=== PATIENT | male | born 1950 | race Hispanic/Latino ===

== ENCOUNTER 2017-08-12 11:30 | Emergency (ER) | payer BC ==
[2017-08-12 11:37] VITALS: BP 174/91; PULSE 75; RESP 18; TEMP 98.1; O2SAT 96
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
== END 2017-08-12 12:08 | disposition home or self-care (01) ==
LOC: C.ER 11:30
DX: S01.511A Laceration without foreign body of lip, initial encounter (principal); W50.0XXA Accidental hit or strike by another person, initial encounter

== ENCOUNTER 2017-08-29 23:15 | Inpatient (IN) | payer BC, MEDICARE ==
[2017-08-29 23:40] LABS: BASO # 0.1 K/uL (0.0-0.2); BASO % 0.8 % (0.0-2.0); EOS # 0.2 K/uL (0.0-0.7); EOS % 1.9 % (0.0-4.0); HEMOGLOBIN 16.3 g/dL (12.0-18.0); LYMPH # 3.6 K/uL (1.0-4.3); LYMPH % 39.4 % (20.0-40.0); MEAN CELL VOLUME 98.4 fL (80.0-94.0); MEAN CORPUSCULAR HEMOGLOBIN 34.7 pg (27.0-31.0); MEAN CORPUSCULAR HGB CONC 35.3 g/dL (33.0-37.0); MONO # 0.7 K/uL (0.0-0.8); NEUT # 4.5 K/uL (1.8-7.0); NEUT % 49.9 % (50.0-75.0); NRBC % 0.1 % (0.0-2.0); RBC 4.7 Mil/uL (4.40-5.90); RED CELL DISTRIBUTION WIDTH 12.8 % (11.5-14.5); WHITE BLOOD COUNT 9.1 K/uL (4.8-10.8)
--- NOTE | 2017-08-29 23:52 | C.PDOC ---
History Of Present Illness 67 year old male, whose PMHx includes heroin abuse, presents to the ED requesting heroin detox. Patient states his last use was tonight. He denies suicidal/homicidal ideation and has no other complaints at this time. Chief Complaint (Nursing): Substance Abuse History Per: Patient History/Exam Limitations: no limitations Onset/Duration Of Symptoms: Hrs Current Symptoms Are (Timing): Still Present Suicide/Self Injury Attempted (Context): None Modifying Factor(s): Other (heroin ) Associated Symptoms: denies: Suicidal Thoughts, Suicidal Plan Involuntary Hold By: None Recent travel outside of the [place]: No Additional History Per: Patient Past Medical History Reviewed: Historical Data, Nursing Documentation, Vital Signs Vital Signs: Last Vital Signs Temp 98.1 F 08/29/17 23:20 Pulse 79 08/29/17 23:20 Resp 20 08/29/17 23:20 BP 131/77 08/29/17 23:20 Pulse Ox 98 08/30/17 01:08 - Medical History PMH: Anxiety Surgical History: No Surg Hx Family History: States: Unknown Family Hx - Social History Hx Alcohol Use: No Hx Substance Use: No - Immunization History Hx Tetanus Toxoid Vaccination: Yes Hx Influenza Vaccination: No Hx Pneumococcal Vaccination: No Review Of Systems Psych: Positive for: Other (heroin detox ) Physical Exam - Physical Exam Appears: Non-toxic, No Acute Distress Skin: Normal Color, Warm, Dry Head: Atraumatic, Normacephalic Eye(s): bilateral: Normal Inspection Oral Mucosa: Moist Neck: Supple Chest: Symmetrical, No Deformity, No Tenderness Cardiovascular: Rhythm Regular, No Murmur Respiratory: Normal Breath Sounds, No Accessory Muscle Use Extremity: Normal ROM, Capillary Refill (less than 2 seconds ) Neurological/Psych: Oriented x3, Normal Speech, Normal Cognition ED Course And Treatment - Laboratory Results Result Diagrams: 08/29/17 23:37 08/29/17 23:37 O2 Sat by Pulse Oximetry: 98 (on RA ) Pulse Ox Interpretation: Normal Progress Note: Bloodwork and urinalysis ordered and reviewed. Disposition Discussed With : David Renee Doctor Will See Patient In The: Hospital Counseled Patient/Family Regarding: Diagnosis - Disposition Disposition: HOSPITALIZED Disposition Time: 01:07 Condition: STABLE Forms: [facility] (Sudanese) - POA Present On Arrival: None - Clinical Impression Clinical Impression: Opiate abuse, continuous, Alcohol abuse - Scribe Statement The provider has reviewed the documentation as recorded by the Scribe (Brigette Arreola) Provider Attestation: All medical record entries made by the Scribe were at my direction and personally dictated by me. I have reviewed the chart and agree that the record accurately reflects my personal performance of the history, physical exam, medical decision making, and the department course for this patient. I have also personally directed, reviewed, and agree with the discharge instructions and disposition.
[2017-08-29 23:53] LABS: ALBUMIN 4.1 g/dL (3.5-5.0); ALT/SGPT 121 U/L (21-72); AST/SGOT 104 U/L (17-59); BLOOD UREA NITROGEN 16 mg/dL (9-20); CALCIUM 8.9 mg/dl (8.6-10.4); GFR AFRICAN-AMERICAN > 60; GFR NON-AFRICAN AMERICAN > 60
[2017-08-29 23:56] LABS: URINE BACTERIA RARE (<OCC); URINE BILIRUBIN NEGATIVE (NEGATIVE); URINE BLOOD NEGATIVE (NEGATIVE); URINE CALCIUM OXALATE CRYSTALS OCC /hpf (<OCC); URINE CLARITY Hazy (Clear); URINE COLOR Amber (YELLOW); URINE GLUCOSE (UA) NORMAL (Normal); URINE LEUKOCYTE ESTERASE NEG Leu/uL (Negative); URINE PROTEIN 1+ mg/dL (NEGATIVE)
[2017-08-30 00:04] LABS: BARBITURATES, UR NEGATIVE (NEGATIVE); PHENCYCLIDINE, UR NEGATIVE (NEGATIVE)
[2017-08-30 00:09] LABS: BENZODIAZEPINES, UR POSITIVE (NEGATIVE); OPIATES, UR POSITIVE (NEGATIVE)
--- NOTE | 2017-08-30 02:41 | PCM.BM ---
<Yolanda Bryson - Last Filed: 08/30/17 02:39> Treatment Plan Problems - Problems identified on initial assessmt Opiates dependence Date Initiated: 08/30/17 Time Initiated: 02:00 Assessment reference: NA Status: Active Treatment assets and liabiliti Patient Assests: cooperative, ADL independent, negotiates basic needs Patient Liabilities: substance abuse - Milieu Protocol Maintain good personal hygiene: daily Encourage regular showers, daily Remind patient to perform daily oral care, daily Assist patient to perform ADL's Conduct patient checks and document Observation sheet: Q15 minutes Maintain personal safety: every shift Educate patient to report safety concerns to staff, every shift Monitor environment for contraband/sharps Medication safety: Monitor for expected outcome, potential side effects: every shift, Assess barriers to learning: every shift, Assess readiness for medication education: every shift <David Renee - Last Filed: 08/30/17 14:02> - Diagnosis (1) Alcohol abuse Status: Acute Interventions: 08/30/17 14:02 * Assess 7x/week regarding severity of withdrawal * Educate regarding risks, benefits, side effects and alternatives of medications * Use Motivational Interviewing for abstinence * Use CBT for relapse prevention * Medication management for withdrawal symptoms * Encourage medication assisted treatment * (2) Opiate abuse, continuous Status: Acute Interventions: 08/30/17 14:02 * Assess 7x/week regarding severity of withdrawal * Educate regarding risks, benefits, side effects and alternatives of medications * Use Motivational Interviewing for abstinence * Use CBT for relapse prevention * Medication management for withdrawal symptoms * Encourage medication assisted treatment * <Mayda Manzano - Last Filed: 09/03/17 13:28> Family Contact Family involvement: Family/SO is involved Family contact name: Sukhwinder Family contacted how many times per week?: 1 - Goals for Treatment Patient goals for treatment: Complete detox and transition to MMT. Discharge/Continuing Care - Education Needs Education Needs: Patient Medication, Patient Diagnosis/Disease Process, Patient Coping Skills, Patient Anger Management skills, Patient Placement options, Patient Community resources, Significant Other Medication, Significant Other Diagnosis/Disease Process, Significant Other Coping Skills, Significant Other Anger Management skills, Significant Other Placement options, Significant Other Community resources - Discharge Discharge Criteria: No longer exhibiting s/s of withdrawal, Reduction of target symptoms Discharge to:: Home, With Family - Treatment Team Participation Patient/Family/SO Statement: 09/03/17 13:28 "I wanna go to methadone after this..." Discussed with Family/SO: No Was Patient/Family/SO present at Treatment Team Meeting: Yes
[2017-08-30] MEDS ORDERED: Aluminum Hydroxide/Magnesium Hydroxide Susp (30 mL) PO PRN (09:24)
[2017-08-30] MEDS: Multiple Vitamins Tab PO SCH (10:20)
--- NOTE | 2017-08-30 12:32 | PCM.PSYCH ---
Initial Psychiatric Evaluation - Initial Psychiatric Evaluation Type of Admission: Voluntary Legal Status: Capacity Chief Complaint (in patient's own words): "Heroin, I need to stop." History of Present Illness and Precipitating Events: The patient is seen, chart reviewed and his case discussed. This is a 67-year-old male, has one child who is 24 years old. The patient is "semiretired," and lives in his car at the moment. He says he is using 7 bags of intranasal heroin for the past 4 years. He had one detox and rehabilitation in [place] several years ago. He hasn't been on maintenance or gone to . He describes significant withdrawal symptoms and he was unable to stop without admission. He also uses Xanax 1-2 mg a day and alcohol 4-5 shots and some beers, almost daily. Maximum was 10 shots a day. He smokes 2 cigarettes per day. He also smokes marijuana regularly. He denies having seizures but he came close to DTs he says. Past psych history: He suffers from anxiety disorder. No medications and no admissions. No suicide attempts Past medical history: This currently and has lower back pain, bilateral knee replacement and hepatitis C Family psych history: Denies Current Medications: Active Medications Generic Name Dose Route Start Last Admin Trade Name Freq PRN Reason Stop Dose Admin Al Hydrox/Mg Hydrox/Simethicone 30 ml 08/30/17 09:24 Maalox 30 Ml PO TID PRN Indigestion / Heartburn Clonidine HCl 0.1 mg 08/30/17 09:23 Catapres PO Q4H PRN Symptoms of alcohol withdrawl Folic Acid 1 mg 08/30/17 10:00 08/30/17 10:20 Folic Acid PO 1 mg DAILY CLARISSA Administration Ibuprofen 400 mg 08/30/17 02:33 08/30/17 10:20 Motrin Tab PO 400 mg Q6 PRN Administration Pain, moderate (4-7) Loperamide HCl 2 mg 08/30/17 09:24 Imodium PO Q8 PRN Diarrhea Lorazepam 1 mg 08/30/17 09:23 Ativan PO Q4H PRN Symptoms of alcohol withdrawl Lorazepam 1 mg 08/30/17 10:00 08/30/17 10:20 Ativan PO 09/04/17 09:59 1 mg Q4H CLARISSA Administration Taper Multivitamins 1 tab 08/30/17 10:00 08/30/17 10:20 Hexavitamin PO 1 tab DAILY CLARISSA Administration Ondansetron HCl 4 mg 08/30/17 09:24 Zofran Tab PO Q8 PRN Nausea/Vomiting Pneumococcal Polyvalent Vaccine 0.5 ml 09/02/17 10:00 Pneumovax 23 Vaccine IM 09/02/17 10:01 .ONCE ONE Thiamine HCl 100 mg 08/30/17 10:00 08/30/17 10:20 Vitamin B1 Tab PO 100 mg DAILY CLARISSA Administration Trazodone HCl 50 mg 08/30/17 09:23 Desyrel PO HS PRN Insomnia Past Psychiatric History - Past Psychiatric History Previous Treatment History: None Pertinent Medical Hx (Current Medical&Sleep Prob, Allergies): Allergies Allergy/AdvReac Type Severity Reaction Status Date / Time No Known Allergies Allergy Verified 08/29/17 23:26 Gabapentin [Neurontin] 300 mg PO TID 04/08/15 Review of Systems - Neurological Neurological: UNREMARKABLE - Psychiatric Psychiatric: Abnormal Sleep Pattern, Anhedonia, Anxiety, Difficulty Concentrating. absent: Hallucinations, Homicidal Ideation, Paranoia, Suicidal Ideation Mental Status Examination - Personal Presentation Personal Presentation: Looks stated age - Affect Affect: Constricted - Motor Activity Motor Activity: Calm - Reliability in Providing Information Reliability in Providing Information: Good - Speech Speech: Organized - Mood Mood: Anxious - Formal Thought Process Formal Thought Process: No Impairment - Cognitive Functions Orientation: Person, Place, Situation, Time Sensorium: Alert Attention/Concentration: Easily distracted Estimate of Intelligence: Average Judgement: Intact, as evidence by: Insight regarding need for hospitalization Memory: Recent intact, as evidence by: Ability to recall events of the day, Remote intact, as evidenced by: Abilit to recall sig. 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 Attend groups and activities Supportive therapy and psychoeducation [place] for abstinence CBT for relapse prevention Encourage MAT Refer to rehab or IOP, and self-help groups Smoking cessation with [place] Nicotine patch if needed 34 min Projected ELOS: 4-5 days Prognosis: good w treatment - Smoking Cessation Smoking Cessation Initiated: Yes
[2017-08-31] MEDS: Multiple Vitamins Tab PO SCH (09:16)
--- NOTE | 2017-09-01 00:15 | PCM.PYCHPN ---
Psychiatric Progress Note - Psychiatric Progress Note Patient seen today, length of contact: 15 min Patient Chief Complaint: "Pain everywhere" Problems Identified/Issues Discussed: The pt is seen, chart reviewed, case discussed with staff. The pt is compliant with medications and reports no side-effects. Symptoms are improving but needs more time to stabilize. Pt attends activities. Support given, psycho-education provided. After care discussed. He thinks about moving to [place] Medication Change: Yes (detox changes daily) Medical Record Reviewed: Yes Mental Status Examination - Cognitive Function Orientation: Person, Place, Situation, Time Memory: Intact Attention: WNL Concentration: Poor Association: WNL Fund of Knowledge: WNL - Mood Mood: Anxious - Affect Affect: Constricted - Speech Speech: Appropriate - Formal Thought Process Formal Thought Process: No Impairment - Suicidal Ideation Suicidal Ideation: No - Homicidal Ideation Homicidal Ideation: No Goal/Treatment Plan - Goal/Treatment Plan Need for Continued Stay: Discharge may exacerbated symptoms, Severe functional impairment Progress Toward Problem(s) and Goals/Treatment Plan: Taper with methadone and Ativan Gabapentin for augmentation if needed As needed medications All risks, benefits and alternatives of the meds discussed, and the pt agreed and understood. Attend groups and activities Supportive therapy and psychoeducation [place] for abstinence CBT for relapse prevention Encourage MAT Refer to rehab or IOP, and self-help groups Smoking cessation with [place] Nicotine patch if needed Estimated Date of D/C: 09/04/17
[2017-09-01] MEDS: Multiple Vitamins Tab PO SCH (09:27)
[2017-09-02] MEDS ORDERED: Pneumococcal 23-Valent Vaccine IM ONE (10:00)
[2017-09-02] MEDS: Multiple Vitamins Tab PO SCH (10:27)
--- NOTE | 2017-09-02 11:54 | PCM.PYCHPN ---
Psychiatric Progress Note - Psychiatric Progress Note Patient seen today, length of contact: 16 min Patient Chief Complaint: "I can't sleep until late hours" Problems Identified/Issues Discussed: The pt is seen, chart reviewed, case discussed with staff. Support and psychoeducation given, CBT and ID used briefly No new symptoms reported, improving slowly and needs more time No SEs from medications, risks discussed. After care discussed Medication Change: Yes (detox changes daily) Medical Record Reviewed: Yes Mental Status Examination - Cognitive Function Orientation: Person, Place, Situation, Time Memory: Intact Attention: WNL Concentration: Poor Association: WNL Fund of Knowledge: WNL - Mood Mood: Anxious - Affect Affect: Constricted - Speech Speech: Appropriate - Formal Thought Process Formal Thought Process: No Impairment - Suicidal Ideation Suicidal Ideation: No - Homicidal Ideation Homicidal Ideation: No Goal/Treatment Plan - Goal/Treatment Plan Need for Continued Stay: Discharge may exacerbated symptoms, Severe functional impairment Progress Toward Problem(s) and Goals/Treatment Plan: Taper with methadone and Ativan Gabapentin for augmentation if needed As needed medications All risks, benefits and alternatives of the meds discussed, and the pt agreed and understood. Attend groups and activities Supportive therapy and psychoeducation [place] for abstinence CBT for relapse prevention Encourage MAT Refer to rehab or IOP, and self-help groups Smoking cessation with ID Nicotine patch if needed Estimated Date of D/C: 09/04/17
[2017-09-03] MEDS: Multiple Vitamins Tab PO SCH (09:23)
[2017-09-03] MEDS ORDERED: guaiFENesin 100 mg/5 ml Syrup UD PO PRN (13:41)
--- NOTE | 2017-09-03 14:01 | PCM.PYCHPN ---
Psychiatric Progress Note - Psychiatric Progress Note Patient seen today, length of contact: 15 min Patient Chief Complaint: "I am so sick" Problems Identified/Issues Discussed: The pt is seen, chart reviewed, case discussed with staff. The pt is compliant with medications and reports no side-effects. Symptoms are improving but needs more time to stabilize. He c/o pain, dizziness , insomnia Pt attends groups and activities. Support given, psycho-education provided. After care discussed. Medication Change: Yes (detox changes daily) Medical Record Reviewed: Yes Mental Status Examination - Cognitive Function Orientation: Person, Place, Situation, Time Memory: Intact Attention: WNL Concentration: Poor Association: WNL Fund of Knowledge: WNL - Mood Mood: Anxious - Affect Affect: Constricted - Speech Speech: Appropriate - Formal Thought Process Formal Thought Process: No Impairment - Suicidal Ideation Suicidal Ideation: No - Homicidal Ideation Homicidal Ideation: No Goal/Treatment Plan - Goal/Treatment Plan Need for Continued Stay: Discharge may exacerbated symptoms, Severe functional impairment Progress Toward Problem(s) and Goals/Treatment Plan: Taper with methadone and Ativan Gabapentin for augmentation if needed As needed medications All risks, benefits and alternatives of the meds discussed, and the pt agreed and understood. Attend groups and activities Supportive therapy and psychoeducation [place] for abstinence CBT for relapse prevention Encourage MAT Refer to rehab or IOP, and self-help groups Smoking cessation with [place] Nicotine patch if needed Estimated Date of D/C: 09/05/17
--- NOTE | 2017-09-03 15:15 | RAD ---
Date of service: 09/03/2017 HISTORY: productive cough COMPARISON: No prior. TECHNIQUE: Chest PA and lateral FINDINGS: LUNGS: No active pulmonary disease. PLEURA: No significant pleural effusion identified. No pneumothorax apparent. CARDIOVASCULAR: Normal. OSSEOUS STRUCTURES: Scoliosis. Degenerative changes. VISUALIZED UPPER ABDOMEN: Normal. OTHER FINDINGS: None. IMPRESSION: No active disease.
[2017-09-04] MEDS: Multiple Vitamins Tab PO SCH (10:17)
--- NOTE | 2017-09-04 13:53 | PCM.PYCHPN ---
Psychiatric Progress Note - Psychiatric Progress Note Patient seen today, length of contact: 15 min Patient Chief Complaint: "I am so sick" Problems Identified/Issues Discussed: The pt is seen, chart reviewed, case discussed with staff. The pt is compliant with medications and reports no side-effects. Symptoms are improving but needs more time to stabilize. He c/o pain, dizziness , insomnia Pt attends groups and activities. Support given, psycho-education provided. After care discussed. Medication Change: Yes (detox changes daily) Medical Record Reviewed: Yes Mental Status Examination - Cognitive Function Orientation: Person, Place, Situation, Time Memory: Intact Attention: WNL Concentration: Poor Association: WNL Fund of Knowledge: WNL - Mood Mood: Anxious - Affect Affect: Constricted - Speech Speech: Appropriate - Formal Thought Process Formal Thought Process: No Impairment - Suicidal Ideation Suicidal Ideation: No - Homicidal Ideation Homicidal Ideation: No Goal/Treatment Plan - Goal/Treatment Plan Need for Continued Stay: Discharge may exacerbated symptoms, Severe functional impairment Progress Toward Problem(s) and Goals/Treatment Plan: Taper with methadone and Ativan Gabapentin for augmentation if needed As needed medications All risks, benefits and alternatives of the meds discussed, and the pt agreed and understood. Attend groups and activities Supportive therapy and psychoeducation [place] for abstinence CBT for relapse prevention Encourage MAT Refer to rehab or IOP, and self-help groups Smoking cessation with [place] Nicotine patch if needed Estimated Date of D/C: 09/05/17
[2017-09-04 14:09] VITALS: TEMP 98.5; O2SAT 98
--- NOTE | 2017-09-04 14:33 | PCM.PYCHDC ---
Mental Status Examination - Mental Status Examination Orientation: Person Discharge Summary - Discharge Note Consultations:: List each consultation separately and include: 1. Reason for request. 2. Findings. 3. Follow-up Summary of Hospital Course include:: 1. Description of specific treatment plan utilized for patients during their course of treatmen. 2. Summarize the time- course for resolution of acute symptoms and/or regressed behaviors. 3. Describe issues identified and worked on during hospitalization. 4. Describe medication utilized. 5. Describe medical problems identified and treated. 6. Reassessment of suicide risk Summary of Hospital Course: The patient is seen, chart reviewed and his case discussed. This is a 67-year-old male, has one child who is 24 years old. The patient is "semiretired," and lives in his car at the moment. He says he is using 7 bags of intranasal heroin for the past 4 years. He had one detox and rehabilitation in [place] several years ago. He hasn't been on maintenance or gone to . He describes significant withdrawal symptoms and he was unable to stop without admission. He also uses Xanax 1-2 mg a day and alcohol 4-5 shots and some beers, almost daily. Maximum was 10 shots a day. He smokes 2 cigarettes per day. He also smokes marijuana regularly. He denies having seizures but he came close to DTs he says. Past psych history: He suffers from anxiety disorder. No medications and no admissions. No suicide attempts Past medical history: This currently and has lower back pain, bilateral knee replacement and hepatitis C Family psych history: Denies He was considered for several rehabs, ie [facility] bc he wanted to go there, and [facility] but at the last minute he changed his mind, plus he did not have an ID. - Diagnosis (1) Alcohol abuse Current Visit: Yes Status: Acute (2) Opiate abuse, continuous Current Visit: Yes Status: Acute - Final Diagnosis (DSM 5) Condition upon Discharge: STABLE Disposition: HOME/ ROUTINE
[2017-09-04 14:57] VITALS: BP 167/83; PULSE 61; RESP 18
== END 2017-09-04 15:26 | disposition home or self-care (01) | DRG 895 ==
LOC: C.ER 23:15 → C.7D 08-30 01:08
PROVIDERS: ADMIT Psychiatry & Neurology Psychiatry; ATTEND Psychiatry & Neurology Psychiatry
PROC: HZ2ZZZZ Detoxification Services for Substance Abuse Treatment (ICD-10-PCS; principal; 2017-08-30)
PROC: HZ59ZZZ Individual Psychotherapy for Substance Abuse Treatment, Supportive (ICD-10-PCS; 2017-08-30)
PROC: HZ46ZZZ Group Counseling for Substance Abuse Treatment, Psychoeducation (ICD-10-PCS; 2017-08-30)
PROC: HZ90ZZZ Pharmacotherapy for Substance Abuse Treatment, Nicotine Replacement (ICD-10-PCS; 2017-08-30)
DX: F11.23 Opioid dependence with withdrawal (principal); F10.231 Alcohol dependence with withdrawal delirium; F12.90 Cannabis use, unspecified, uncomplicated; F13.10 Sedative, hypnotic or anxiolytic abuse, uncomplicated; F17.210 Nicotine dependence, cigarettes, uncomplicated; F41.9 Anxiety disorder, unspecified; G47.00 Insomnia, unspecified; B18.2 Chronic viral hepatitis C; Z96.653 Presence of artificial knee joint, bilateral; Z59.0 Homelessness

== ENCOUNTER 2017-09-17 13:52 | Emergency (ER) | payer BC, MEDICARE ==
[2017-09-17 14:13] VITALS: BP 120/85; PULSE 86; RESP 18; TEMP 98.2; O2SAT 96
[2017-09-17] MEDS ORDERED: Lidocaine 5% Patch TD STA (14:37)
--- NOTE | 2017-09-17 14:42 | C.PDOC ---
History Of Present Illness 67 year old with past medical history of chronic back pain and heroin abuse presents to the ER for back pain. Patient states he has chronic lower back pain that has been going on for many years for which he has had 2 prior lumbar disectomies prior. Patient denies numbness and tingling of the pain. He states leaning forward makes the pain better. He states he uses a cane for ambulation. He states he has been homeless for the past few months for which he has been sleeping on the street which has not been helping his back pain. Medical History: Lip[place] (this is a correction from triage); Chronic back pain Social History: Heroin 4-5 bags per day (Nasal use); smokes 1/2 pack per day; 1- 2 beers per day (12oz) (Ami Hillman) Chief Complaint (Nursing): Groin Pain Past Medical History - Medical History PMH: Anxiety, Depression Denies: Diabetes, Hepatitis, HIV, HTN, Seizures, Sexually Transmitted Disease Family History: States: Unknown Family Hx - Social History Hx Alcohol Use: No Hx Substance Use: No - Immunization History Hx Tetanus Toxoid Vaccination: Yes Hx Influenza Vaccination: No Hx Pneumococcal Vaccination: No Vital Signs: Last Vital Signs Temp 98.2 F 09/17/17 14:08 Pulse 86 09/17/17 14:08 Resp 18 09/17/17 14:08 BP 120/85 09/17/17 14:08 Pulse Ox 96 09/17/17 15:26 - [facility] Procedures DETOXIFICATION SERVICES FOR SUBSTANCE ABUSE TREATMENT (08/30/17) GROUP AGRICULTURAL EXTENSION OFFICER FOR SUBSTANCE ABUSE TREATMENT, PSYCHOEDUCATION (08/30/17) INDIV PSYCHOTHERAPY FOR SUBSTANCE ABUSE TREATMENT, SUPPORT (08/30/17) PHARMACOTHERAPY FOR SUBSTANCE ABUSE, NICOTINE REPLACE (08/30/17) Review Of Systems Musculoskeletal: Positive for: Back Pain Neurological: Negative for: Weakness, Numbness, Incoordination, Dizziness Physical Exam - Physical Exam Appears: Well, Non-toxic, No Acute Distress Head: Atraumatic, Normacephalic Eye(s): bilateral: Normal Inspection, PERRL, EOMI Cardiovascular: Rhythm Regular Respiratory: Normal Breath Sounds Gastrointestinal/Abdominal: Normal Exam, Soft, No Tenderness Back: Vertebral Tenderness (L2 vertebral tendereness ), No Decreased ROM ( normal ROM), No Straight Leg Raising (negative straight leg test bilaterally ) Neurological/Psych: Oriented x3, Normal Motor ED Course And Treatment O2 Sat by Pulse Oximetry: 96 Medical Decision Making Medical Decision Making: Discussed with patient the importance of following up with a primary care doctor and a pain management physician. Also counselled the patient the importance of heroin and smoking cessation. ( Ami Hillman) Disposition Discussed With Dr.: Sriram Mae DO - Disposition Disposition Time: 15:26 - Disposition Referrals: [facility] [Outside] [facility] [Outside] Justice Roper MD [Staff Provider] - Disposition: HOME/ ROUTINE Condition: IMPROVED Additional Instructions: BARBARA GUILELRMO, thank you for letting us take care of you today. Your provider was Sriram Mae DO and you were treated for BACK PAIN. The emergency medical care you received today was directed at your acute symptoms. If you were prescribed any medication, please fill it and take as directed. It may take several days for your symptoms to resolve. Return to the Emergency Department if your symptoms worsen, do not improve, or if you have any other problems. Please contact your doctor or call one of the physicians/clinics you have been referred to that are listed on the Patient Visit Information form that is included in your discharge packet. Bring any paperwork you were given at discharge with you along with any medications you are taking to your follow up visit. Our treatment cannot replace ongoing medical care by a primary care provider outside of the emergency department. Thank you for allowing the [facility] team to be part of your care today. Follow up with pain management and the clinic for outpatient care. Prescriptions: Ibuprofen [Motrin] 600 mg PO Q6 PRN #20 tab PRN Reason: Pain, Moderate (4-7) Instructions: Low Back Pain (DC) Forms: [employer] (Yi) - Clinical Impression Clinical Impression: Low back pain, Chronic low back pain - PA / LEGAL INVESTIGATOR / Resident Statement / has reviewed & agrees with the documentation as recorded. / has examined the patient and agrees with the treatment plan.
[2017-09-17] MEDS ORDERED: Lidocaine 5% Patch TD ONE (14:49)
== END 2017-09-17 15:17 | disposition home or self-care (01) ==
LOC: C.ER 13:52
DX: G89.29 Other chronic pain (principal); M54.5 Low back pain; Z59.0 Homelessness; F17.210 Nicotine dependence, cigarettes, uncomplicated
CPT/HCPCS: 96372; 99283; J1885

== ENCOUNTER 2018-02-23 12:37 | Emergency (ER) | payer BC ==
[2018-02-23 13:13] VITALS: BMI 21.9
[2018-02-23 16:16] VITALS: BP 115/74; PULSE 92; RESP 16; TEMP 97.9; O2SAT 98
--- NOTE | 2018-02-23 16:23 | RAD ---
Date of service: 02/23/2018 HISTORY: productive cough COMPARISON: 09/03/2017 TECHNIQUE: Chest PA and lateral FINDINGS: LUNGS: No active pulmonary disease. PLEURA: No significant pleural effusion identified. No pneumothorax apparent. CARDIOVASCULAR: No aortic atherosclerotic calcification present. Normal cardiac size. No pulmonary vascular congestion. OSSEOUS STRUCTURES: No significant abnormalities. Thoracolumbar scoliosis a stable finding. Tortuous thoracic aorta as visualized. VISUALIZED UPPER ABDOMEN: Normal. OTHER FINDINGS: None. IMPRESSION: No active disease. No significant interval change compared to the prior examination(s).
--- NOTE | 2018-02-23 16:26 | C.PDOC ---
History Of Present Illness 67 year old male presents to the ED or evaluation of flu-like symptoms which began three days ago. Patient reports congestion, cough that is productive of dark yellow sputum, generalized body aches, non-bloody vomitus and post-nasal drip. Patient is also c/o diarrhea and loose stools today. Patient denies fever. Patient states he lives [place], with individuals who have been experiencing similar symptoms. Patient denies fever. He admits to tobacco use, using around 7 packs per day intranasally. Time Seen by Provider: 02/23/18 14:28 Chief Complaint (Nursing): Cough, Cold, Congestion History Per: Patient History/Exam Limitations: no limitations Onset/Duration Of Symptoms: Hrs Current Symptoms Are (Timing): Still Present Additional History Per: Patient Past Medical History Reviewed: Historical Data, Nursing Documentation, Vital Signs Vital Signs: Last Vital Signs Temp 97.9 F 02/23/18 16:15 Pulse 92 H 02/23/18 16:15 Resp 16 02/23/18 16:15 BP 115/74 02/23/18 16:15 Pulse Ox 98 02/23/18 16:15 - Medical History PMH: Anxiety, Depression, Hepatitis (C) Denies: Diabetes, HIV, HTN, Seizures, Sexually Transmitted Disease Surgical History: No Surg Hx - [facility] Procedures DETOXIFICATION SERVICES FOR SUBSTANCE ABUSE TREATMENT (08/30/17) GROUP PRODUCT SAFETY ASSOCIATE FOR SUBSTANCE ABUSE TREATMENT, PSYCHOEDUCATION (08/30/17) INDIV PSYCHOTHERAPY FOR SUBSTANCE ABUSE TREATMENT, SUPPORT (08/30/17) PHARMACOTHERAPY FOR SUBSTANCE ABUSE, NICOTINE REPLACE (08/30/17) Family History: States: Unknown Family Hx - Social History Hx Alcohol Use: No Hx Substance Use: No - Immunization History Hx Tetanus Toxoid Vaccination: Yes Hx Influenza Vaccination: No Hx Pneumococcal Vaccination: No Review Of Systems Constitutional: Positive for: Chills. Negative for: Fever ENT: Positive for: Nose Congestion Gastrointestinal: Positive for: Diarrhea Musculoskeletal: Positive for: Other (body aches ) Neurological: Positive for: Headache Physical Exam - Physical Exam Appears: Non-toxic, No Acute Distress, Other (sleepy) Skin: Normal Color, Warm, Dry Head: Atraumatic, Normacephalic Eye(s): bilateral: Normal Inspection Ear(s): Bilateral: Normal Nose: Normal, No Discharge Oral Mucosa: Moist Throat: Normal, No Erythema, No Exudate Neck: Supple Chest: Symmetrical, No Deformity, No Tenderness Cardiovascular: Rhythm Regular, No Murmur Respiratory: Normal Breath Sounds, No Rales, No Rhonchi, No Wheezing Extremity: Normal ROM, Capillary Refill (less than 2 seconds ) Neurological/Psych: Oriented x3, Normal Speech, Normal Cognition ED Course And Treatment O2 Sat by Pulse Oximetry: 98 (on RA) Pulse Ox Interpretation: Normal - Other Rad CXR X-Ray: Viewed By Me, Read By Radiologist Interpretation: Date of service: 02/23/2018. HISTORY: productive cough. COMPARISON: 09/03/2017. TECHNIQUE: Chest PA and lateral. FINDINGS: LUNGS: No active pulmonary disease. PLEURA: No significant pleural effusion identified. No pneumothorax apparent. CARDIOVASCULAR: No aortic atherosclerotic calcification present. Normal cardiac size. No pulmonary vascular congestion. OSSEOUS STRUCTURES: No significant abnormalities. Thoracolumbar scoliosis a stable finding. Tortuous thoracic aorta as visualized. VISUALIZED UPPER ABDOMEN: Normal. OTHER FINDINGS: None. IMPRESSION: No active disease. No significant interval change compared to the prior examination(s). Progress Note: On reassessment, patient is resting comfortably, showing no signs of distress and is stable for discharge. Patient is advised to follow up with PMD within 1-2 days for further evaluation. Disposition - Disposition Disposition: HOME/ ROUTINE Disposition Time: 16:24 Condition: STABLE Additional Instructions: Follow up with PMD within 1-2 days. Return to ED if feel worse. Prescriptions: Brompheniramine/Pseudoephed/Dm [Bromfed Dm Cough 118 ml] 10 ml PO Q4 #300 ml Fluticasone Nasal [Flonase] 1 spr NS BID #1 spr Oseltamivir Cap [Tamiflu] 75 mg PO BID #9 cap Instructions: Influenza (ED) Forms: [employer] (Portuguese) - Clinical Impression Clinical Impression: Influenza-like illness - PA / INKER / Resident Statement MD/DO has reviewed & agrees with the documentation as recorded. - Scribe Statement The provider has reviewed the documentation as recorded by the Scribe (Brigette Arreola) All medical record entries made by the Scribe were at my direction and personal ly dictated by me. I have reviewed the chart and agree that the record accurately reflects my personal performance of the history, physical exam, medical decision making, and the department course for this patient. I have also personally directed, reviewed, and agree with the discharge instructions and disposition.
== END 2018-02-23 16:39 | disposition home or self-care (01) ==
LOC: C.ER 12:37
DX: J11.1 Influenza due to unidentified influenza virus with other respiratory manifestations (principal); Z72.0 Tobacco use

== ENCOUNTER 2018-02-25 07:43 | Emergency (ER) | payer BC ==
[2018-02-25 07:43] VITALS: BMI 21.9
[2018-02-25] MEDS ORDERED: Sodium Chloride 0.9% 1,000 ML IV ONE (08:17)
[2018-02-25] MEDS ORDERED: Sodium Chloride 0.9% 1,000 ML ONE (08:33)
[2018-02-25 08:43] LABS: BASO % 0.3 % (0.0-2.0); EOS % 0.1 % (0.0-4.0); HEMOGLOBIN 16.1 g/dL (12.0-18.0); LYMPH # 1.1 K/uL (1.0-4.3); LYMPH % 11.1 % (20.0-40.0); MEAN CELL VOLUME 97.7 fL (80.0-94.0); MEAN CORPUSCULAR HEMOGLOBIN 34.4 pg (27.0-31.0); MEAN CORPUSCULAR HGB CONC 35.2 g/dL (33.0-37.0); MEAN PLATELET VOLUME 7.9 fL (7.2-11.7); MONO # 1.2 K/uL (0.0-0.8); MONO % 13.1 % (0.0-10.0); NEUT # 7.2 K/uL (1.8-7.0); NEUT % 75.4 % (50.0-75.0); NRBC % 0.1 % (0.0-2.0); RBC 4.69 Mil/uL (4.40-5.90); RED CELL DISTRIBUTION WIDTH 12.6 % (11.5-14.5); WHITE BLOOD COUNT 9.5 K/uL (4.8-10.8)
[2018-02-25 09:06] VITALS: RESP 16
[2018-02-25 09:17] LABS: ALB/GLOB RATIO 1.6 (1.0-2.1); ALBUMIN 4.3 g/dL (3.5-5.0); ALT/SGPT 65 U/L (21-72); AST/SGOT 51 U/L (17-59); BLOOD UREA NITROGEN 18 mg/dL (9-20); GFR NON-AFRICAN AMERICAN > 60; LIPASE 38 U/L (23-300)
--- NOTE | 2018-02-25 09:19 | C.PDOC ---
History Of Present Illness 62 year old male presents to the ED with complaints of nausea, vomiting, and diarrhea since last night. He reports multiple episodes of non-bloody vomiting and watery diarrhea. Patient is actively vomiting in the ED. No fevers or chi lls. Time Seen by Provider: 02/25/18 07:51 Chief Complaint (Nursing): Flu-like Symptoms History Per: Patient History/Exam Limitations: no limitations Onset/Duration Of Symptoms: Hrs Current Symptoms Are (Timing): Still Present Past Medical History Reviewed: Historical Data, Nursing Documentation, Vital Signs Vital Signs: Last Vital Signs Temp 98.2 F 02/25/18 09:05 Pulse 87 02/25/18 09:05 Resp 16 02/25/18 09:05 BP 164/94 H 02/25/18 09:05 Pulse Ox 98 02/25/18 09:05 - Medical History PMH: Anxiety, Depression, Hepatitis (C) Denies: Diabetes, HIV, HTN, Seizures, Sexually Transmitted Disease - [facility] Procedures DETOXIFICATION SERVICES FOR SUBSTANCE ABUSE TREATMENT (08/30/17) GROUP BUNCHER HAND FOR SUBSTANCE ABUSE TREATMENT, PSYCHOEDUCATION (08/30/17) INDIV PSYCHOTHERAPY FOR SUBSTANCE ABUSE TREATMENT, SUPPORT (08/30/17) PHARMACOTHERAPY FOR SUBSTANCE ABUSE, NICOTINE REPLACE (08/30/17) Family History: States: Unknown Family Hx - Social History Hx Alcohol Use: No Hx Substance Use: No - Immunization History Hx Tetanus Toxoid Vaccination: Yes Hx Influenza Vaccination: No Hx Pneumococcal Vaccination: No Review Of Systems Except As Marked, All Systems Reviewed And Found Negative. Constitutional: Negative for: Fever, Chills Cardiovascular: Negative for: Chest Pain Respiratory: Negative for: Cough, Shortness of Breath Gastrointestinal: Positive for: Nausea, Vomiting, Diarrhea Genitourinary: Negative for: Dysuria, Hematuria Neurological: Negative for: Weakness, Numbness, Dizziness Physical Exam - Physical Exam Appears: Non-toxic, No Acute Distress Skin: Warm, Dry, No Rash Head: Atraumatic, Normacephalic Eye(s): bilateral: Normal Inspection, PERRL, EOMI Oral Mucosa: Moist Neck: Normal ROM Chest: Symmetrical Cardiovascular: Rhythm Regular, No Murmur Respiratory: Normal Breath Sounds, No Accessory Muscle Use Gastrointestinal/Abdominal: Bowel Sounds (active), Soft, No Tenderness, No Distention, Other (Actively vomiting and retching) Extremity: Bilateral: Atraumatic, Normal Color And Temperature, Normal ROM Neurological/Psych: Oriented x3 Gait: Steady ED Course And Treatment - Laboratory Results Result Diagrams: 02/25/18 08:31 02/25/18 08:31 Lab Interpretation: No Acute Changes ECG: Interpreted By Me ECG Rhythm: Sinus Rhythm, Nonspecific Changes ECG Interpretation: No Acute Changes Rate From EC O2 Sat by Pulse Oximetry: 98 (RA) Pulse Ox Interpretation: Normal Progress Note: Treated with IVF NSS, zofran and Bentyl. On re-evaluation abdomen soft in no distress Reassessment Condition: Improved Medical Decision Making Medical Decision Making: Plan: - Labs - EKG - IV fluids - 4 mg IV Zofran - 20 mg IM Bentyl Disposition Doctor Will See Patient In The: Hospital Counseled Patient/Family Regarding: Studies Performed, Diagnosis, Need For Followup - Disposition Referrals: [facility] [Outside] [facility] [Outside] Disposition: HOME/ ROUTINE Disposition Time: 10:00 Condition: STABLE Additional Instructions: Follow up with clinic or PMD for further evaluation Instructions: Viral Gastroenteritis Forms: Accompanied To ED By:, [employer] (Citizen Of [place]) - POA Present On Arrival: None - Clinical Impression Clinical Impression: Gastroenteritis - PA / CLIENT ACCOUNT REPRESENTATIVE / Resident Statement MD/DO has reviewed & agrees with the documentation as recorded. - Scribe Statement The provider has reviewed the documentation as recorded by the Scribabrrie King All medical record entries made by the Scribe were at my direction and personally dictated by me. I have reviewed the chart and agree that the record accurately reflects my personal performance of the history, physical exam, medical decision making, and the department course for this patient. I have also personally directed, reviewed, and agree with the discharge instructions and disposition.
[2018-02-25 11:26] VITALS: BP 161/89; PULSE 63; TEMP 98.9
[2018-02-25 16:18] VITALS: O2SAT 98
--- NOTE | 2018-02-27 15:52 | CARD ---
APPROVED REPORT Date of service: 02/25/2018 EKG Measurement Heart [id number] <Conclusion> Sinus rhythm with sinus arrhythmia with frequent premature ventricular complexes Left axis deviation Cannot rule out Inferior infarct, age undetermined Abnormal ECG
== END 2018-02-25 11:24 | disposition home or self-care (01) ==
LOC: C.ER 07:43
DX: K52.9 Noninfective gastroenteritis and colitis, unspecified (principal)
CPT/HCPCS: 80053; 83690; 85025; 93005; 96361; 96372; 96374; 96376; 99285; J0500; J2405; J7030

== ENCOUNTER 2018-03-21 05:51 | Emergency (ER) | payer BC ==
[2018-03-21 05:51] VITALS: BMI 21.9
--- NOTE | 2018-03-21 06:10 | C.PDOC ---
History Of Present Illness 67 year old male presents to the ED c/o abdominal pain that started last night after drinking and doing a bag of heroin. Patient denies SI/HI, hallucinations,fever, chills, CP, SOB, injury, fall, trauma. Time Seen by Provider: 03/21/18 06:10 Chief Complaint (Nursing): Abdominal Pain History Per: Patient History/Exam Limitations: no limitations Onset/Duration Of Symptoms: Hrs Current Symptoms Are (Timing): Still Present Recent travel outside of the [place]: No Additional History Per: Patient Past Medical History Reviewed: Historical Data, Nursing Documentation, Vital Signs Vital Signs: Last Vital Signs Temp 98.2 F 03/21/18 06:00 Pulse 75 03/21/18 06:00 Resp 14 03/21/18 06:00 BP 159/101 H 03/21/18 06:00 Pulse Ox 96 03/21/18 06:00 - Medical History PMH: Anxiety, Depression, Hepatitis (C) Denies: Diabetes, HIV, HTN, Seizures, Sexually Transmitted Disease Surgical History: No Surg Hx - [facility] Procedures DETOXIFICATION SERVICES FOR SUBSTANCE ABUSE TREATMENT (08/30/17) GROUP LOTTERY MANAGER FOR SUBSTANCE ABUSE TREATMENT, PSYCHOEDUCATION (08/30/17) INDIV PSYCHOTHERAPY FOR SUBSTANCE ABUSE TREATMENT, SUPPORT (08/30/17) PHARMACOTHERAPY FOR SUBSTANCE ABUSE, NICOTINE REPLACE (08/30/17) Family History: States: Unknown Family Hx - Social History Hx Alcohol Use: No Hx Substance Use: No - Immunization History Hx Tetanus Toxoid Vaccination: Yes Hx Influenza Vaccination: No Hx Pneumococcal Vaccination: No Review Of Systems Constitutional: Negative for: Fever, Chills Cardiovascular: Negative for: Chest Pain, Palpitations Respiratory: Negative for: Shortness of Breath Gastrointestinal: Positive for: Nausea, Vomiting, Abdominal Pain. Negative for: Diarrhea Genitourinary: Negative for: Dysuria, Hematuria Skin: Negative for: Rash Neurological: Negative for: Weakness, Numbness, Headache, Dizziness Physical Exam - Physical Exam Appears: Non-toxic, No Acute Distress Skin: Warm, Dry Head: Normacephalic Eye(s): bilateral: Normal Inspection Oral Mucosa: Moist Neck: Supple Chest: Symmetrical Cardiovascular: Rhythm Regular Respiratory: No Rales, No Rhonchi, No Wheezing Gastrointestinal/Abdominal: Soft, Tenderness (mild mid epigastric), No Guarding, No Rebound Extremity: Bilateral: Atraumatic, Normal Color And Temperature, Normal ROM Neurological/Psych: Oriented x3, Normal Speech, Normal Cognition Gait: Steady ED Course And Treatment ECG: Interpreted By Me, Viewed By Me ECG Rhythm: Sinus Rhythm (75), Nonspecific Changes O2 Sat by Pulse Oximetry: 96 (ON RA) Pulse Ox Interpretation: Normal Progress Note: Plan: - EKG. - Labs. - Protonix 40 mg IVP. - Zofran 4 mg IVP. - UA. - IV fluids Disposition Counseled Patient/Family Regarding: Studies Performed, Diagnosis - Disposition Disposition Time: 06:10 Condition: FAIR Forms: [employer] (Indonesian) - Clinical Impression Clinical Impression: Abdominal pain - Scribe Statement The provider has reviewed the documentation as recorded by the Scribe Jason Butler All medical record entries made by the Scribe were at my direction and personally dictated by me. I have reviewed the chart and agree that the record accurately reflects my personal performance of the history, physical exam, medical decision making, and the department course for this patient. I have also personally directed, reviewed, and agree with the discharge instructions and disposition. Physician Patient Turnover Patient Signed Over To: Chavez Sarah V Handoff Comments: Pending dispo, labs
[2018-03-21] MEDS ORDERED: Sodium Chloride 0.9% 1,000 ML IV ONE (06:12)
[2018-03-21] MEDS ORDERED: Sodium Chloride 0.9% 1,000 ML ONE (06:18)
[2018-03-21 06:30] LABS: BASO # 0.1 K/uL (0.0-0.2); BASO % 0.6 % (0.0-2.0); EOS % 0.2 % (0.0-4.0); HEMOGLOBIN 15.2 g/dL (12.0-18.0); LYMPH # 1.7 K/uL (1.0-4.3); LYMPH % 19.1 % (20.0-40.0); MEAN CELL VOLUME 97.6 fL (80.0-94.0); MEAN CORPUSCULAR HEMOGLOBIN 33.6 pg (27.0-31.0); MEAN CORPUSCULAR HGB CONC 34.4 g/dL (33.0-37.0); MEAN PLATELET VOLUME 7.5 fL (7.2-11.7); MONO # 0.7 K/uL (0.0-0.8); MONO % 8.4 % (0.0-10.0); NEUT # 6.4 K/uL (1.8-7.0); NEUT % 71.7 % (50.0-75.0); RBC 4.52 Mil/uL (4.40-5.90); RED CELL DISTRIBUTION WIDTH 13.4 % (11.5-14.5); WHITE BLOOD COUNT 8.9 K/uL (4.8-10.8)
[2018-03-21 06:37] LABS: PROTHROMBIN TIME 10.7 SECONDS (9.7-12.2)
[2018-03-21 06:59] LABS: ALB/GLOB RATIO 1.4 (1.0-2.1); ALBUMIN 3.9 g/dL (3.5-5.0); ALT/SGPT 76 U/L (21-72); AST/SGOT 93 U/L (17-59); BLOOD UREA NITROGEN 15 mg/dL (9-20); CALCIUM 9.3 mg/dl (8.6-10.4); GFR NON-AFRICAN AMERICAN > 60; LIPASE 92 U/L (23-300)
[2018-03-21 08:17] LABS: SQUAMOUS EPITHIAL 1 /hpf (0-5); URINE BILIRUBIN NEGATIVE (NEGATIVE); URINE BLOOD NEGATIVE (NEGATIVE); URINE CLARITY Clear (Clear); URINE COLOR Yellow (YELLOW); URINE GLUCOSE (UA) NORMAL (Normal); URINE LEUKOCYTE ESTERASE NEG Leu/uL (Negative); URINE PROTEIN NEGATIVE (NEGATIVE); URINE UROBILINOGEN NORMAL mg/dL (0.2-1.0)
[2018-03-21 09:11] VITALS: RESP 17
[2018-03-21 09:26] LABS: BARBITURATES, UR NEGATIVE (NEGATIVE); BENZODIAZEPINES, UR NEGATIVE (NEGATIVE); PHENCYCLIDINE, UR NEGATIVE (NEGATIVE)
[2018-03-21 09:31] LABS: OPIATES, UR POSITIVE (NEGATIVE)
[2018-03-21 09:42] VITALS: BP 176/96; PULSE 68; TEMP 99.1; O2SAT 99
--- NOTE | 2018-03-21 10:07 | RAD ---
Date of service: 03/21/2018 HISTORY: vomiting COMPARISON: None available. FINDINGS: BOWEL: Nonobstructive bowel gas pattern appreciated. No demonstrated free intra peritoneal gas collection. Gas distends the stomach somewhat. BONES: Levoscoliotic lumbar spinal deformity identified in concert with dextroscoliotic thoracic spinal deformity. OTHER FINDINGS: No abnormal internal calcifications. IMPRESSION: Nonobstructive bowel gas pattern. Gas distends the stomach moderately.
--- NOTE | 2018-03-23 14:26 | CARD ---
APPROVED REPORT Date of service: 03/21/2018 EKG Measurement Heart [id number] <Conclusion> Normal sinus rhythm Possible Left atrial enlargement Left axis deviation Left ventricular hypertrophy Abnormal ECG
== END 2018-03-21 10:02 | disposition home or self-care (01) ==
LOC: C.ER 05:51
DX: R10.13 Epigastric pain (principal)
CPT/HCPCS: 74019; 80053; 81001; 83690; 85025; 85610; 85730; 93005; 96361; 96372; 96374; 96375; 99285; C9113; G0480; J1885; J2405; J7030

== ENCOUNTER 2018-05-01 15:59 | Emergency (ER) | payer BC ==
[2018-05-01 16:23] VITALS: BMI 22.5
[2018-05-01 16:24] VITALS: RESP 18
[2018-05-01] MEDS ORDERED: Tdap Vaccine 0.5 ml Vial (10-64 yrs) IM ONE ×2 (17:23→18:24)
--- NOTE | 2018-05-01 18:12 | CT ---
Date of service: 05/01/2018 PROCEDURE: CT MAXILLOFACIAL BONES WITHOUT CONTRAST HISTORY: right orbital and zygomatic tenderness s/p trauma COMPARISON: Not available TECHNIQUE: Contiguous axial CT images of the maxillofacial bones were obtained. Coronal and sagittal reformats were generated. Radiation dose: Total exam DLP = 947.5 mGy-cm. This CT exam was performed using one or more of the following dose reduction techniques: Automated exposure control, adjustment of the mA and/or kV according to patient size, and/or use of iterative reconstruction technique. FINDINGS: NASAL BONES: Unremarkable. ORBITS: . Depressed fracture posterior aspect right 2nd attic arch. No other over fracture. The lamina papyracea appears intact bilaterally. PARANASAL SINUSES/ MASTOIDS: Chronic ethmoid and right maxillary sinusitis. Chronic sphenoid sinusitis. High attenuation material in the inferior right maxillary antrum may reflect acute hemorrhage. MAXILLA: There is a depressed fracture of the posterior aspect of the right zygomatic arch. The zygomatic of frontal suture appears intact. MANDIBLE/ TEMPOROMANDIBULAR JOINTS: Unremarkable. SKULL BASE: Unremarkable. TEMPORAL BONES: Middle ears and mastoid grossly unremarkable. OTHER FINDINGS: None. IMPRESSION: Minimally displaced fracture right orbital floor. Extensively comminuted fractures of the right maxilla. Chronic paranasal sinusitis. Depressed fracture posterior aspect right zygomatic arch.
--- NOTE | 2018-05-01 18:48 | C.PDOC ---
History Of Present Illness 67 year old male, whose past medical history includes polysubstance abuse, presents to the ED for evaluation of worsening pain and swelling to right eye and right side of his face. Patient states that 3 days ago, he was rushing saying goodbye to someone when he accidentally banged his face against the edge of a door. Patient also reports spitting up some blood. Patient denies LOC, neck pain, vision change, headache, dizziness. Patient denies recent substance abuse. Time Seen by Provider: 05/01/18 17:05 Chief Complaint (Nursing): ENT Problem History Per: Patient History/Exam Limitations: None Onset/Duration Of Symptoms: Days Current Symptoms Are (Timing): Still Present Past Medical History Reviewed: Historical Data, Nursing Documentation, Vital Signs Vital Signs: Last Vital Signs Temp 98.3 F 05/01/18 16:23 Pulse 75 05/01/18 16:23 Resp 18 05/01/18 16:23 BP 150/87 05/01/18 16:23 Pulse Ox 95 05/01/18 16:23 - Medical History PMH: Anxiety, Depression, Hepatitis (C) Denies: Diabetes, HIV, HTN, Seizures, Sexually Transmitted Disease Surgical History: No Surg Hx - [facility] Procedures DETOXIFICATION SERVICES FOR SUBSTANCE ABUSE TREATMENT (08/30/17) GROUP [facility] [employer] FOR SUBSTANCE ABUSE TREATMENT, PSYCHOEDUCATION (08/30/17) INDIV PSYCHOTHERAPY FOR SUBSTANCE ABUSE TREATMENT, SUPPORT (08/30/17) PHARMACOTHERAPY FOR SUBSTANCE ABUSE, NICOTINE REPLACE (08/30/17) Family History: States: Unknown Family Hx - Social History Hx Alcohol Use: Yes Hx Substance Use: No - Immunization History Hx Tetanus Toxoid Vaccination: Yes Hx Influenza Vaccination: No Hx Pneumococcal Vaccination: No Review Of Systems Eyes: Positive for: Other (worsening pain and swelling to right eye ). Negative for: Vision Change Musculoskeletal: Negative for: Neck Pain Neurological: Negative for: Headache, Dizziness, Other (loss of consciousness ) Physical Exam - Physical Exam Appears: Non-toxic, No Acute Distress Skin: Normal Color, Warm, Dry Head: Tenderness (right zygomatic tenderness ), Swelling (right-sided, facial ), No Other (crepitus ) Eye(s): bilateral: PERRL, EOMI, right: Other (marked periorbital ecchymosis. subconjunctival hemmorrhage. pinpoint pupils ) Ear(s): Bilateral: Other (hemotympanum) Nose: Tenderness (right-sided ), No Septal Hematoma Oral Mucosa: Moist Neck: Supple Chest: Symmetrical, No Deformity, No Tenderness Extremity: Normal ROM Neurological/Psych: Normal Speech, Normal Cognition ED Course And Treatment O2 Sat by Pulse Oximetry: 95 - CT Scan/US CT orbits Other Rad Studies (CT/US): Read By Radiologist, Radiology Report Reviewed CT/US Interpretation: Date of service: 05/01/2018. PROCEDURE: CT MAXILLOFACIAL BONES WITHOUT CONTRAST. HISTORY: right orbital and zygomatic tenderness s/p trauma. COMPARISON: Not available. TECHNIQUE: Contiguous axial CT images of the maxillofacial bones were obtained. Coronal and sagittal reformats were generated. Radiation dose: Total exam DLP = 947.5 mGy-cm. This CT exam was performed using one or more of the following dose reduction techniques: Automated exposure control, adjustment of the mA and/or kV according to patient size, and/or use of iterative reconstruction technique. FINDINGS: NASAL BONES: Unremarkable. ORBITS: . Depressed fracture posterior aspect right 2nd attic arch. No other over fracture. The lamina papyracea appears intact bilaterally. PARANASAL SINUSES/ MASTOIDS: Chronic ethmoid and right maxillary sinusitis. Chronic sphenoid sinusitis. High attenuation material in the inferior right maxillary antrum may reflect acute hemorrhage. MAXILLA: There is a depressed fracture of the posterior aspect of the right zygomatic arch. The zygomatic of frontal suture appears intact. MANDIBLE/ TEMPOROMANDIBULAR JOINTS: Unremarkable. SKULL BASE: Unremarkable. TEMPORAL BONES: Middle ears and mastoid grossly unremarkable. OTHER FINDINGS: None. IMPRESSION: Minimally displaced fracture right orbital floor. Extensively comminuted fractures of the right maxilla. Chronic paranasal sinusitis. Depressed fracture posterior aspect right zygomatic arch. Medical Decision Making Medical Decision Making: Progress: CT orbits/facial ordered and reviewed. Tetanus IM administered. Tylenol PO given. mu;tiple fx in maxilla and zygomatic arch and orbit; discussed with Dr Victor from [facility] at [facility]; recommends pt f/u next Wed in their clinic as putpatient.l Disposition Counseled Patient/Family Regarding: Studies Performed, Diagnosis, Need For Followup - Disposition Referrals: Service Observer Chief Service [Outside] Champ Wesley MD [Staff Provider] - Disposition: HOME/ ROUTINE Disposition Time: 19:06 Condition: GOOD Additional Instructions: [facility] go to [facility] in [facility] on Friday and go to the [facility] clinic; oral maxilofacial surgery clinic; you can ewalk in, open form 8 am to 4 pm. Bring copy of CD of cat scan with you. [facility] [address] [place] [address] Also follow up with Dr Wesley eye docto as soon as possible. If you have trouble making appointments, call the [facility] service for help. Prescriptions: Acetaminophen [Tylenol 325mg tab] 650 mg PO Q4 #50 tab Instructions: Skull and Facial Fractures (DC) Forms: [employer] ([place]) - Clinical Impression Clinical Impression: Fracture of orbital floor, Maxillary fracture, right side, initial encounter for closed fracture - PA / MEDICAL REIMBURSEMENT SPECIALIST / Resident Statement MD/DO has reviewed & agrees with the documentation as recorded. - Scribe Statement The provider has reviewed the documentation as recorded by the Scribe (Brigette Arreola) All medical record entries made by the Scribe were at my direction and personally dictated by me. I have reviewed the chart and agree that the record accurately reflects my personal performance of the history, physical exam, medical decision making, and the department course for this patient. I have also personally directed, reviewed, and agree with the discharge instructions and disposition.
[2018-05-01 19:16] VITALS: BP 132/74; PULSE 81; TEMP 98
[2018-05-01 20:38] VITALS: O2SAT 95
== END 2018-05-01 19:16 | disposition home or self-care (01) ==
LOC: C.ER 15:59
DX: S02.31XA Fracture of orbital floor, right side, initial encounter for closed fracture (principal); S02.40CA Maxillary fracture, right side, initial encounter for closed fracture; W22.09XA Striking against other stationary object, initial encounter; Z23 Encounter for immunization